=== PATIENT | female | born 1955 | race Hispanic/Latino ===

== ENCOUNTER 2018-06-26 15:06 | Emergency (ER) | payer MEDICARE ==
[2018-06-26 15:10] VITALS: BMI 41.5
[2018-06-26 16:22] LABS: BASO % 0.5 % (0.0-2.0); EOS # 0.1 K/uL (0.0-0.7); HEMOGLOBIN 12.9 g/dL (11.0-16.0); LYMPH # 0.9 K/uL (1.0-4.3); MEAN CELL VOLUME 82.1 fL (81.0-99.0); MEAN CORPUSCULAR HEMOGLOBIN 26.4 pg (27.0-31.0); MEAN CORPUSCULAR HGB CONC 32.2 g/dL (33.0-37.0); MEAN PLATELET VOLUME 8.9 fL (7.2-11.7); MONO # 0.5 K/uL (0.0-0.8); MONO % 7.3 % (0.0-10.0); NEUT % 77.2 % (50.0-75.0); RBC 4.89 Mil/uL (3.80-5.20); RED CELL DISTRIBUTION WIDTH 15.1 % (11.5-14.5); WHITE BLOOD COUNT 6.4 K/uL (4.8-10.8)
--- NOTE | 2018-06-26 16:23 | C.PDOC ---
History Of Present Illness 62 y/o female presents to the ED complaining of difficulty urinating for the last 2 weeks. Patient reports she has been able to urinate but less regularly and she is only able to urinate small amounts each time. Of note patient states she is s/p multiple urological procedures and had her urethra dilated. No recent procedures. Patient describes having lower abdominal discomfort, intermittent for the past couple of days. She also reports feeling nauseous, but no vomiting. Associated with occasional dizziness, but patient denies any syncope or chest pain. Otherwise she denies fevers, chills, hematuria, SOB, cough, numbness, weak ness, or other associated symptoms. Urology- Dr. Escamilla Time Seen by Provider: 06/26/18 15:18 Chief Complaint (Nursing): Female Genitourinary History Per: Patient History/Exam Limitations: no limitations Onset/Duration Of Symptoms: Intermittent Episodes Current Symptoms Are (Timing): Still Present Past Medical History Reviewed: Historical Data, Nursing Documentation, Vital Signs Vital Signs: Last Vital Signs Temp 98.3 F 06/26/18 15:10 Pulse 82 06/26/18 15:10 Resp 18 06/26/18 15:10 BP 113/70 06/26/18 15:10 Pulse Ox 98 06/26/18 15:10 - Medical History PMH: Anemia (blood transfusion), Bipolar Disorder, COPD, Diverticulitis, Osteoporosis, Peripheral Edema (+1 ble), TIA Other PMH: Thrombocytopenia Surgical History: Denies: Pacemaker - [facility] Procedures ABD JOSE REPAIR-GRFT NEC (11/28/98) ABD WALL JOSE REPAIR NEC (04/07/98) DESTRUCT PERITONEAL TISS (11/28/98) DRAINAGE OF RIGHT FOOT SKIN, EXTERNAL APPROACH, DIAGNOSTIC (08/13/16) ESOPHAGOGASTRODUODENOSCOPY [EGD] W/CLOSED BIOPSY (02/18/07) EXC LES SOFT TISSUE NEC (04/07/98) INJECT/INFUSE NEC (05/24/05) INSERTION OF INFUSION DEV INTO SUP VENA CAVA, PERC APPROACH (08/13/16) LOCAL EXCIS BREAST LES (04/07/98) NEBULIZER THERAPY (01/07/07) OTH LYSIS-PERITONEAL ADHES (11/28/98) ULTRASONOGRAPHY OF LEFT UPPER EXTREMITY VEINS, GUIDANCE (08/13/16) Family History: States: Unknown Family Hx - Social History Hx Alcohol Use: No Hx Substance Use: No - Immunization History Hx Tetanus Toxoid Vaccination: No Hx Influenza Vaccination: Yes Hx Pneumococcal Vaccination: No Review Of Systems Except As Marked, All Systems Reviewed And Found Negative. Constitutional: Negative for: Fever, Chills Cardiovascular: Negative for: Chest Pain Respiratory: Negative for: Shortness of Breath Gastrointestinal: Positive for: Nausea, Abdominal Pain. Negative for: Vomiting, Diarrhea Genitourinary: Positive for: Other (Difficulty urinating). Negative for: Frequency, Incontinence Musculoskeletal: Negative for: Back Pain Skin: Negative for: Rash Neurological: Positive for: Dizziness. Negative for: Weakness, Numbness, Other (syncope) Physical Exam - Physical Exam Appears: Non-toxic, No Acute Distress, Other (Morbidly obese female) Skin: Warm, Dry, No Rash Head: Atraumatic, Normacephalic Eye(s): bilateral: Normal Inspection, PERRL, EOMI Oral Mucosa: Moist Neck: Normal ROM Chest: Symmetrical Cardiovascular: Rhythm Regular, No Murmur Respiratory: Normal Breath Sounds, No Rales, No Rhonchi, No Wheezing Gastrointestinal/Abdominal: Bowel Sounds (decreased), Soft (and obese), Tenderness (Mild tenderness to suprapubic region), No Guarding, No Rebound Back: No CVA Tenderness, No Vertebral Tenderness Extremity: Normal ROM, No Deformity, Swelling (Bilateral lower extremity edema) Extremity: Bilateral: Normal Color And Temperature Pulses: Left Dorsalis Pedis: Normal, Right Dorsalis Pedis: Normal Neurological/Psych: Oriented x3, Normal Speech ED Course And Treatment - Laboratory Results Result Diagrams: 06/26/18 16:06 06/26/18 16:06 ECG: Interpreted By Me, Viewed By Me ECG Rhythm: Sinus Rhythm Interpretation Of ECG: Normal intervals, Normal axis, No ST changes Rate From EC O2 Sat by Pulse Oximetry: 98 (RA) Pulse Ox Interpretation: Normal Medical Decision Making Medical Decision Making: Impression: Dysuria Plan: - EKG - CMP - Lipase - Pro-BNP - Troponin I - CBC - Urinalysis - Urine culture Labs reviewed and discussed with patient. Kidney function is normal. UA is clear. Glucose elevated at 290. Platelets 67. Patient has hx of thrombocytopenia, currently at baseline. She denies any bleeding. On reassessment, patient is insisting her urologist be called. States she was told she needs a dilation procedure. She continues to complain of difficulty urinating. Bladder scan performed, 97cc of urine detected per nurse. 18:[address] Escamilla, who states patient has not been seen by him in the past year and there is no urological procedure planned at this time. Dr. Escamilla notes that patient called the office this past week and was offered an appointment. He is familiar with patient and recommends patient be discharged home w/Rx for Macrobid and follow up in the office next week. I made the patient aware of my d/w Dr. Escamilla. She is agreeable w/POC. Disposition Counseled Patient/Family Regarding: Studies Performed, Diagnosis, Need For Followup - Disposition Referrals: Flash Escamilla Jr., MD [Staff Provider] - Disposition: HOME/ ROUTINE Disposition Time: 18:00 Condition: STABLE Additional Instructions: RADHA GARCIA, thank you for letting us take care of you today. Your provider was Arti Santillan MD and you were treated for UNABLE TO URINATE. The emergency medical care you received today was directed at your acute symptoms. If you were prescribed any medication, please fill it and take as directed. It may take several days for your symptoms to resolve. Return to the Emergency Department if your symptoms worsen, do not improve, or if you have any other problems. Dr. Escamilla wants you to make an appointment to see him in his office next week. Bring any paperwork you were given at discharge with you along with any medications you are taking to your follow up visit. Our treatment cannot replace ongoing medical care by a primary care provider outside of the emergency department. Thank you for allowing the [facility] team to be part of your care today. Prescriptions: Sulfamethoxazole/Trimethoprim [Bactrim DS 800 mg-160 mg] 1 tab PO BID #14 tab Instructions: Dysuria, Adult (DC), Hyperglycemia, Adult (DC) Forms: [employer] (Irish), General Discharge Instructions - Clinical Impression Clinical Impression: Dysuria, Hyperglycemia - Scribe Statement The provider has reviewed the documentation as recorded by the Ramesh Wolf Provider Attestation: All medical record entries made by the Ramesh were at my direction and personally dictated by me. I have reviewed the chart and agree that the record accurately reflects my personal performance of the history, physical exam, medical decision making, and the department course for this patient. I have also personally directed, reviewed, and agree with the discharge instructions and disposition.
[2018-06-26 16:31] LABS: ALBUMIN 3.5 g/dL (3.5-5.0); ALT/SGPT 10 U/L (9-52); AST/SGOT 36 U/L (14-36); BLOOD UREA NITROGEN 11 mg/dL (7-17); GFR NON-AFRICAN AMERICAN > 60; LIPASE 83 U/L (23-300)
[2018-06-26 17:21] LABS: SQUAMOUS EPITHIAL 16 /hpf (0-5); URINE BACTERIA RARE (<OCC); URINE BILIRUBIN NEGATIVE (NEGATIVE); URINE BLOOD NEGATIVE (NEGATIVE); URINE CLARITY Hazy (Clear); URINE COLOR Amber (YELLOW); URINE GLUCOSE (UA) 3+ mg/dL (Normal); URINE LEUKOCYTE ESTERASE TRACE Leu/uL (Negative); URINE PROTEIN NEGATIVE (NEGATIVE)
[2018-06-26] MEDS ORDERED: Tmp-Smz 800 mg-160 mg DS Tab PO STA (18:09)
[2018-06-26] MEDS ORDERED: Tmp-Smz 800 mg-160 mg DS Tab ONE (18:14)
[2018-06-26 18:15] VITALS: BP 138/78; PULSE 77; RESP 17; TEMP 98.6
[2018-06-28 14:37] VITALS: O2SAT 98
--- NOTE | 2018-06-29 15:01 | CARD ---
APPROVED REPORT Date of service: 06/26/2018 EKG Measurement Heart [id number] <Conclusion> Normal sinus rhythm Normal ECG
== END 2018-06-26 18:14 | disposition home or self-care (01) ==
LOC: C.ER 15:06
DX: R30.0 Dysuria (principal); R73.9 Hyperglycemia, unspecified